=== PATIENT | male | born 1950 | race Caucasian/White ===

== ENCOUNTER → 2023-03-01 | Outpatient (CLI) | payer MEDICARE ==
--- NOTE | 2023-03-01 18:51 | CA ---
Exercise Stress Test Report Name: Demian Abraham Exam Date: 03/01/2023 09:40 Exam Location: [place] Stress Ht (in): 70 Wt (lb): 179 BSA: 1.99 Ordering Phys: Domenica Flroes DO Referring Phys: Elyse Crooks Technologist: Piter Cantrell Age: 72 Gender: M : 1950 Procedure CPT: Indications: R94.31 ABNORMAL EKG ICD-10 Codes: Patient History: Abnormal EKG Medications: Meds past 24 hrs: Pretest Chest Pain: STRESS TEST Demian Protocol Exercise Duration (min:sec): 06:[address] Depressions (mm): Angina Score: Alexander Score: Resting HR (bpm): 102 Peak HR (bpm): 151 Resting BP (mmHg): 138 / 98 Peak BP (mmHg): / 109 MPHR: 148 Target HR: 126 % MPHR: 102 METS: 7.1 Total Dose: Peak Dose: Atropine: Double Product: BP Response: Stress Termination: TARGET HR REACHED/MAX EXERTION Stress Symptoms: NO SYMPTOMS Stress Summary: ECG ANALYSIS Resting ECG: Stress ECG: CONCLUSIONS Good exercise tolerance Normal EKG response to exercise Dr. Chi Simmons MD (Electronically Signed) Final Date: 01 March 2023 18:50
== END | disposition home or self-care (01) ==
LOC: RADNMMAIN 09:19
PROVIDERS: ATTEND Family Medicine
DX: R94.31 Abnormal electrocardiogram [ECG] [EKG] (principal)
CPT/HCPCS: 93017